=== PATIENT | male | born 1970 | race Caucasian/White ===

== ENCOUNTER 2021-05-24 07:38 | Outpatient (CLI) | payer BC, OTHER, SELFPAY | END 2021-05-24 07:39 | disposition home or self-care (01) | PROVIDERS: PCP Family Medicine; Visit Provider Otolaryngology | DX: H60.541 Acute eczematoid otitis externa, right ear (principal); H81.11 Benign paroxysmal vertigo, right ear | CPT/HCPCS: 92537; 92540; 92546; 92567 ==